=== PATIENT | female | born 1990 | race Two or more races ===

== ENCOUNTER 2021-04-11 16:55 | Outpatient (CLI) | payer SELFPAY ==
[~2021-04-11] VITALS: Ht 165.1 cm; Wt 77.7 kg
[2021-04-11 17:43] VITALS: BP 126/81
[2021-04-11] MEDS ORDERED: LEVE500T53 PO (17:54)
[2021-04-11] MEDS ORDERED: ASPI-963 PO (17:55)
[2021-04-11] MEDS ORDERED: LACO150T PO (17:55)
[2021-04-11 18:01] LABS: MICROSCOPIC INDICATED
== END 2021-04-11 19:11 | disposition home or self-care (01) ==
LOC: LDOP 16:55
PROVIDERS: ATTEND Student in an Organized Health Care Education/Training Program
DX: O26.893 Other specified pregnancy related conditions, third trimester (principal); R10.9 Unspecified abdominal pain; Z3A.36 36 weeks gestation of pregnancy
CPT/HCPCS: 59025; 81001

== ENCOUNTER 2021-04-26 07:45 | Inpatient (IN) | payer OTHER ==
[~2021-04-26] VITALS: Ht 165.1 cm; Wt 78.2 kg
[~2021-04-26 07:45] MED LIST: ASPI-963 PO; LACO150T PO; LEVE500T53 PO
[2021-04-26] MEDS ORDERED: LIDOCAINE 1%, 20ML ONE (13:41)
[2021-04-26] MEDS ORDERED: NEWBORN KIT ONE (13:41)
[2021-04-26] MEDS ORDERED: OXYTOCIN 30U/ 0.9% NaCL 500ML 500 ML ONE (13:41)
[2021-04-26] MEDS ORDERED: MISOPROSTOL 25 MCG TABLET ONE (13:41)
[2021-04-26] MEDS ORDERED: MISOPROSTOL 200 MCG TABLET ONE (13:41)
[2021-04-26] MEDS ORDERED: METOCLOPRAMIDE 5 MG/ML, 2ML IVPush PRN (14:00)
[2021-04-26] MEDS ORDERED: MISOPROSTOL 25 MCG TABLET VG PRN (14:00)
[2021-04-26] MEDS ORDERED: TERBUTALINE 1 MG/ML, 1ML SQ PRN (14:00)
[2021-04-26] MEDS ORDERED: FENTANYL PF 100 MCG/2ML IVPush PRN (14:00)
[2021-04-26] MEDS ORDERED: CALCIUM CARBONATE 500 MG TAB.CHEW PO PRN (14:00)
[2021-04-26] MEDS: D5%-LACTATED RINGERS 1,000 ML IV SCH ×2 (14:00→22:00)
[2021-04-26] MEDS ORDERED: ALUMINUM/MAG/SIMETHICONE 30 ML UDC PO PRN (14:00)
[2021-04-26] MEDS ORDERED: OXYTOCIN 30U/ 0.9% NaCL 500ML 500 ML IV PRN (14:00)
[2021-04-26] MEDS ORDERED: OXYTOCIN 30U/ 0.9% NaCL 500ML 500 ML IV ONE (14:00)
[2021-04-26] MEDS ORDERED: ONDANSETRON 2MG/ML, 2ML IVPush PRN ×2 (14:00→20:00)
[2021-04-26] MEDS ORDERED: SODIUM CITRATE/CITRIC ACID 30 ML UDC PO PRN (14:00)
[2021-04-26] MEDS ORDERED: TERBUTALINE 1 MG/ML, 1ML IVPush PRN (14:00)
[2021-04-26 14:43] LABS: BASOPHILS % (AUTO) 0 % (0-1); EOSINOPHILS % (AUTO) 1 % (1-7); LYMPHOCYTES % (AUTO) 11 % (22-44); MEAN CORPUSCULAR HEMOGLOBIN 27.3 pg (27.0-34.8); MEAN CORPUSCULAR HGB CONC 33.4 g/dL (32.4-35.8); MEAN PLATELET VOLUME 9.9 fL (7.4-10.4); MONOCYTES % (AUTO) 9 % (2-9); NEUTROPHILS % (AUTO) 79 % (42-75); PLATELET COUNT 187 x10^3/uL (130-400); RED BLOOD COUNT 4.83 x10^6/uL (3.82-5.3); RED CELL DISTRIBUTION WIDTH 14.2 % (9.6-15.2)
[2021-04-26] MEDS ORDERED: PLEASE ENTER ALLERGIES MC SCH (15:00)
[2021-04-26] MEDS: LACTATED RINGERS 1,000 ML IV SCH ×3 (15:00→20:00)
[2021-04-26] MEDS ORDERED: PLEASE ENTER HEIGHT AND WEIGHT MC SCH (15:00)
[2021-04-26] MEDS ORDERED: BUPIVACAINE 0.25% ONE (17:28)
[2021-04-26] MEDS ORDERED: FENTANYL/BUPIV./NS/PF 250 ML EPIDCONT ONE (17:28)
[2021-04-26] MEDS ORDERED: ONDANSETRON 2MG/ML, 2ML IV PRN (20:00)
[2021-04-26] MEDS ORDERED: DOCUSATE 100 MG CAPSULE PO PRN (20:00)
[2021-04-26] MEDS ORDERED: MAGNESIUM HYDROXIDE 8%, 30ML UDC PO PRN (20:00)
[2021-04-26] MEDS ORDERED: ACETAMINOPHEN 325 MG TABLET PO PRN ×2 (20:00)
[2021-04-26] MEDS ORDERED: LACTATED RINGERS 1,000 ML IVBOLUS PRN (20:00)
[2021-04-26] MEDS ORDERED: MISOPROSTOL 200 MCG TABLET PR PRN (20:00)
[2021-04-26] MEDS ORDERED: FENTANYL/BUPIV./NS/PF 250 ML EPIDCONT SCH (20:00)
[2021-04-26] MEDS ORDERED: RHOGAM FROM BLOOD BANK 1 NOTE EA IM/IV ONE (20:00)
[2021-04-26] MEDS ORDERED: DIPHENHYDRAMINE 50 MG/ML, 1ML IVPush PRN (20:00)
[2021-04-26] MEDS ORDERED: IBUPROFEN 600 MG TABLET PO PRN (20:00)
[2021-04-26] MEDS ORDERED: NALOXONE 0.4 MG/ML, 1ML IVPush PRN (20:00)
[2021-04-26] MEDS: OXYTOCIN 30U/ 0.9% NaCL 500ML 500 ML IV SCH (20:00)
[2021-04-26] MEDS ORDERED: SIMETHICONE 80 MG CHEW TAB PO PRN (20:00)
[2021-04-26] MEDS ORDERED: OXYcodone/APAP 5/325MG TABLET PO PRN ×2 (20:00)
[2021-04-26] MEDS ORDERED: DIPH,PERTUSS(ACELL),TET VAC/PF NC IM-VACC PRN (20:00)
[2021-04-26] MEDS ORDERED: EPHEDRINE 50 MG/ML, 1ML IVPush PRN (20:00)
[2021-04-26 22:39] VITALS: BP 110/68
[2021-04-27] MEDS: LACTATED RINGERS 1,000 ML IV SCH ×4 (04:00→14:00)
[2021-04-27 04:17] VITALS: BP 118/76
[2021-04-27] MEDS: D5%-LACTATED RINGERS 1,000 ML IV SCH ×2 (04:24→14:00)
[2021-04-27 05:43] LABS: BASOPHILS % (AUTO) 0 % (0-1); EOSINOPHILS % (AUTO) 1 % (1-7); LYMPHOCYTES % (AUTO) 11 % (22-44); MEAN CORPUSCULAR HEMOGLOBIN 27.1 pg (27.0-34.8); MEAN CORPUSCULAR HGB CONC 32.9 g/dL (32.4-35.8); MEAN PLATELET VOLUME 9.7 fL (7.4-10.4); MONOCYTES % (AUTO) 9 % (2-9); NEUTROPHILS % (AUTO) 79 % (42-75); PLATELET COUNT 165 x10^3/uL (130-400); RED BLOOD COUNT 4.51 x10^6/uL (3.82-5.3); RED CELL DISTRIBUTION WIDTH 14.4 % (9.6-15.2)
[2021-04-27] MEDS: OXYTOCIN 30U/ 0.9% NaCL 500ML 500 ML IV SCH ×2 (06:00→16:00)
[2021-04-27 08:00] VITALS: BP 120/77
[2021-04-27] MEDS ORDERED: LACOSAMIDE 150 MG in SODIUM CHLORIDE 0.9% 100 ML IV SCH (08:00)
[2021-04-27] MEDS: LEVETIRACETAM 500 MG TABLET PO SCH ×2 (08:09→09:00)
[2021-04-27] MEDS ORDERED: LACOSAMIDE 50 MG TAB PO SCH (09:00)
[2021-04-27] MEDS ORDERED: PRENATAL VIT/IRON/FA 1 EACH TABLET PO SCH (09:00)
[2021-04-27 15:32] VITALS: BP 119/76
[2021-04-27] MEDS ORDERED: IBUP-1222 PO (16:52)
== END 2021-04-27 18:50 | disposition home or self-care (01) | DRG 807 ==
LOC: LDIP 13:35 → 2NW 22:28
PROVIDERS: ADMIT Student in an Organized Health Care Education/Training Program; ATTEND Student in an Organized Health Care Education/Training Program
PROC: 10E0XZZ Delivery of Products of Conception, External Approach (ICD-10-PCS; principal; 2021-04-26)
PROC: 10907ZC Drainage of Amniotic Fluid, Therapeutic from Products of Conception, Via Natural or Artificial Opening (ICD-10-PCS; 2021-04-26)
PROC: 3E0S3BZ Introduction of Anesthetic Agent into Epidural Space, Percutaneous Approach (ICD-10-PCS; 2021-04-26)
PROC: 00HU33Z Insertion of Infusion Device into Spinal Canal, Percutaneous Approach (ICD-10-PCS; 2021-04-26)
PROC: 3E033VJ Introduction of Other Hormone into Peripheral Vein, Percutaneous Approach (ICD-10-PCS; 2021-04-26)
DX: O99.284 Endocrine, nutritional and metabolic diseases complicating childbirth (principal); Z37.0 Single live birth; G40.909 Epilepsy, unspecified, not intractable, without status epilepticus; O99.350 Diseases of the nervous system complicating pregnancy, unspecified trimester; O99.354 Diseases of the nervous system complicating childbirth; E55.9 Vitamin D deficiency, unspecified; Z3A.39 39 weeks gestation of pregnancy; Z79.82 Long term (current) use of aspirin; Z79.899 Other long term (current) drug therapy; Z81.8 Family history of other mental and behavioral disorders
CPT/HCPCS: 36415; 85025; 86592; 86850; 86900; 87635; G0378; J2590; J3010; J7120